=== PATIENT | female | born 1995 | race Caucasian/White ===

== ENCOUNTER 2016-11-06 22:33 | Emergency (ER) | payer BC ==
[2016-11-06 22:38] VITALS: BP 111/71; PULSE 105; RESP 20; TEMP 98.6; O2SAT 95
--- NOTE | 2016-11-06 22:53 | EDPHY ---
H & P Time Seen by Provider: 11/06/16 22:47 HPI/ROS: CHIEF COMPLAINT: Possible foreign body left calcaneus region HISTORY OF PRESENT ILLNESS: 21-year-old female accidentally stepped on glass last evening, pulled the piece of glass out feels as if she may have a retained foreign body. Tetanus up-to-date. No paresthesia. Able to bear weight albeit with pain. PHYSICAL EXAM (Prior to examination, patient consented to physical exam, hands were washed and my usual and customary physical exam procedures followed) 1) GENERAL: Well-developed, well-nourished, alert and oriented. Appears to be in no acute distress. 2) HEAD: Normocephalic 3) HEENT: sclera anicteric 4) LUNGS: Breathing comfortably. 5) SKIN: Left calcaneus 2 mm puncture wound with no erythema, no pain, no discharge, no visible or palpable foreign body. No signs of infection. 6) MUSCULOSKELETAL: soft compartments Smoking Status: Never smoked Constitutional: Initial Vital Signs Temperature (C) 37 C 11/06/16 22:35 Heart Rate 105 H 11/06/16 22:35 Respiratory Rate 20 11/06/16 22:35 Blood Pressure 111/71 11/06/16 22:35 O2 Sat (%) 95 11/06/16 22:35 O2 Delivery Mode Room Air Allergies/Adverse Reactions: No Known Allergies Allergy (Unverified 08/19/16 13:35) Home Medications: Medication Instructions Recorded CLONAZEPAM 08/19/16 GABAPENTIN 11/06/16 Lunesta 11/06/16 RITALIN LA 11/06/16 MDM/Departure - [facility] Diagnostics: Left foot, 3 views. History: Pain. Evaluate for glass in heel of foot. Findings: Normal mineralization and alignment. No evidence for acute fracture or dislocation. No significant joint narrowing, periarticular erosion, periarticular spurring. No evidence for radiopaque foreign body. Impression: Unremarkable radiograph left foot. No evidence for radiopaque foreign body. Dictated By: Salvador Cutler MD Images reviewed by myself ED Course/Re-evaluation: Re-evaluation with serial exams. Discussed limitations of x-ray. Informed that radiolucent foreign body not ruled out. No signs of infection at this time. Given usual customary wound precautions and instructions. She feels comfortable being discharged. - Depart Disposition: Home, Routine, Self-Care Clinical Impression: Left calcaneus puncture wound Condition: Good Instructions: Puncture Wound (ED) Additional Instructions: Return to the ER if you develop redness, swelling, discharge, warmth to the wound, red streaks going up your leg, or any other symptoms that concern you. Referrals: Jenny Alvarenga DPM [Doctor of Podiatric Medicine] - 5-7 days, call for appt.
== END 2016-11-06 23:37 | disposition home or self-care (01) ==
DX: S91.332A Puncture wound without foreign body, left foot, initial encounter (principal); W25.XXXA Contact with sharp glass, initial encounter

== ENCOUNTER 2016-12-02 00:22 | Emergency (ER) | payer BC ==
[2016-12-02 00:37] VITALS: RESP 16; TEMP 97.7
--- NOTE | 2016-12-02 00:38 | EDPHY ---
H & P Stated Complaint: pt says she had syncopal episode after walking into room with drano fumes HPI/ROS: HPI CHIEF COMPLAINT: Syncope, head strike HISTORY OF PRESENT ILLNESS: This patient very pleasant 21-year-old female significant past medical history for depression, attention deficit hyperactivity disorder and anxiety, she presents emergency room with a friend at 12:45 p.m. at night after she had a syncopal episode. Patient states that she was trying to unclog the drain in her bathtub she poor drain no close the door to the bathroom and walked out she went to recheck on this and approximately 20 minutes after the drain was in the room she walked into the room there is a very strong odor and next thing she knows she woke up on the ground. She believes she had a syncopal episode she had no preceding symptoms specifically denies chest pain or shortness of breath denies palpitations lightheadedness or tunnel vision. She does know exactly what happened but woke up on the bathroom ground. She does tell me that she had a head strike and hip that her head left posterior occiput on the wall. She has pain there currently 6/10. At this time this patient appears well nontoxic she is not vomiting she is complaining of 6/10 left posterior occiput pain. She is agreeable for CT scan of her head due to syncope and head trauma, and is agreeable for an EKG however she is refusing IV establishment blood work at this time. Past Medical History: Anxiety, attention deficit hyperactivity disorder, depression Past Surgical History: Denies recent surgical history Social History: [employer] student, denies daily use drugs alcohol tobacco products Family History:Noncontributory ROS REVIEW OF SYSTEMS: A comprehensive 10 point review of systems is otherwise negative aside from elements mentioned in the history of present illness. Exam Constitutional appears well nontoxic, triage nursing summary reviewed, vital signs reviewed, awake/alert. Eyes normal conjunctivae and sclera, EOMI, PERRLA. HENT head/neck: left posterior occiput pain tenderness on exam, no significant swelling hematoma or laceration, no midline cervical spine pain, normal inspection, atraumatic, moist mucus membranes, no epistaxis, neck supple / no meningismus, no raccoon eyes. Respiratory clear to auscultation bilaterally, normal breath sounds, no respiratory distress, no wheezing. Cardiovascular rate normal, regular rhythm, no murmur, no edema, distal pulses normal. Gastrointestinal soft, non-tender, no rebound, no guarding, normal bowel sounds, no distension, no pulsatile mass. Genitourinary no CVA tenderness. Musculoskeletal no midline vertebral tenderness, full range of motion, no calf swelling, no tenderness of extremities, no meningismus, good pulses, neurovascularly intact. Skin pink, warm, & dry, no rash, skin atraumatic. Neurologic awake, alert and oriented x 3, AAOx3, moves all 4 extremities equally, motor intact, sensory intact, CN II-XII intact, normal cerebellar, normal vision, normal speech. Psychiatric normal mood/affect. Heme/Lymph/Immune no lymphadenopathy. Differential Diagnosis: includes but is not limited to in a particular order vasovagal syncope, orthostatic syncope, dehydration, cardiac arrhythmia, electrolyte abnormality, closed head injury, intracranial trauma Medical Decision Making: plan for this patient patient on full monitoring specialist she will have an EKG and a CT scan of her head without contrast I did recommend she gets gentle IV hydration and check basic blood work including electrolytes however she is refusing all blood work at this time. Refusing IV establishment. 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 She is agreeable for CT scan EKG at this time. Re-evaluation: EKG interpretation by me on record in [employer]ceipt[employer] system. Impression time of EKG is 0055: This is sinus rhythm rate of 94, no acute ischemic changes or signs of cardiac arrhythmia. Borderline prolonged QT interval present. Otherwise unremarkable EKG. CT scan of the head without IV contrast. The results of the study are negative for acute traumatic injury The study was read by Dr. Serra. I viewed the images myself on the PACS system. 0206: re-evaluation at this time patient is resting comfortably she has a nonfocal neurological exam this time she has no complaints. She ambulated well without difficulty. She is not vomiting. Her EKG is reassuring so is her CT scan of her head. She did refuse blood work so her workup here in emergency room is somewhat limited I did explain with denies check her electrolytes and hydrate her however she has declined IV establishment or blood draw. She understands this does limit her workup and that since she is going home tonight she appears well nontoxic no acute distress has an unremarkable EKG and negative CT scan if she has another episode of syncope she needs return to the emergency room she understands. Source: Patient - Personal History Tetanus Vaccine Date: < 10 YEARS - Medical/Surgical History Hx Asthma: No Hx Chronic Respiratory Disease: No Hx Diabetes: No Hx Cardiac Disease: No Hx Renal Disease: No Hx Cirrhosis: No Hx Alcoholism: No Hx HIV/AIDS: No Hx Splenectomy or Spleen Trauma: No Other PMH: Anxiety, add - Social History Smoking Status: Never smoked Constitutional: Initial Vital Signs Temperature (C) 36.5 C 12/02/16 00:26 Heart Rate 96 12/02/16 00:26 Respiratory Rate 16 12/02/16 00:26 Blood Pressure 118/85 H 12/02/16 00:26 O2 Sat (%) 96 12/02/16 00:26 O2 Delivery Mode Room Air Allergies/Adverse Reactions: No Known Allergies Allergy (Verified 12/02/16 00:31) Home Medications: Medication Instructions Recorded CLONAZEPAM 08/19/16 GABAPENTIN 11/06/16 Lunesta 11/06/16 RITALIN LA 11/06/16 Departure - Departure Disposition: Home, Routine, Self-Care Clinical Impression: Syncope Qualifiers: Syncope type: unspecified Qualified Code(s): R55 - Syncope and collapse Condition: Good Instructions: Syncope (ED), Head Injury (ED), Concussion (ED) Additional Instructions: 1. Return to the emergency room if you have any worsening symptoms questions or concerns includes another episode of syncope, nausea, vomiting, chest pain or any questions or concerns. 2. you had a normal EKG here in the emergency room 3.You had a normal CT scan of her head in the emergency room. Referrals: [facility] [Other] - As per Instructions
[2016-12-02] MEDS ORDERED: IOPAMIDOL (ISOVUE-300) 100 ML BTL IV ONE (00:53)
--- NOTE | 2016-12-02 00:57 | CPEKG ---
Heart Rate: 94 RR Interval: 638 P-R Interval: 176 QRSD Interval: 90 QT Interval: 380 QTC Interval: 476 P Jarreau: 24 QRS Jarreau: 45 T Wave Jarreau: 20 EKG Severity - BORDERLINE ECG - EKG Impression: SINUS RHYTHM EKG Impression: BORDERLINE PROLONGED QT INTERVAL Electronically Signed By: Terrence Clifton 02-Dec-2016 21:46:45
[2016-12-02 02:29] VITALS: BP 101/57; PULSE 62; O2SAT 95
== END 2016-12-02 02:30 | disposition home or self-care (01) ==
LOC: EEVIPCON 00:22
DX: R55 Syncope and collapse (principal)
CPT/HCPCS: Q9967

== ENCOUNTER 2017-08-26 03:59 | Emergency (ER) | payer BC ==
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
[2017-08-26 06:33] VITALS: TEMP 97.9; O2SAT 93
[2017-08-26 06:35] VITALS: BP 107/62; PULSE 86; RESP 16
== END 2017-08-26 06:00 | disposition home or self-care (01) ==
DX: F41.9 Anxiety disorder, unspecified (principal); F10.129 Alcohol abuse with intoxication, unspecified